=== PATIENT | female | born 1985 | race Native Hawaiian/Other Pacific Islander ===

== ENCOUNTER 2018-07-16 09:03 | Emergency (ER) | payer OTHER ==
[~2018-07-16] VITALS: Ht 152.4 cm; Wt 108.9 kg
[2018-07-16 09:10] VITALS: TEMP 98
[2018-07-16 10:09] LABS: PLATELET COUNT 471 K/uL (152-353)
[2018-07-16 10:15] LABS: POTASSIUM 3.4 mmol/L (3.6-5.2)
[2018-07-16 11:35] VITALS: BP 104/62
== END 2018-07-16 14:22 | disposition short-term general hospital (02) ==
LOC: ED 09:03
PROVIDERS: Family Medicine
PROC: 0T9B70Z Drainage of Bladder with Drainage Device, Via Natural or Artificial Opening (ICD-10-PCS; principal; 2018-07-16)
DX: A41.9 Sepsis, unspecified organism (principal); R56.9 Unspecified convulsions; I95.9 Hypotension, unspecified; R00.0 Tachycardia, unspecified
CPT/HCPCS: 36415; 51702; 74022; 80053; 82150; 82550; 83605; 83690; 84484; 85027; 85379; 87040; 93005; 96361; 96365; 96366; 96375; 96376; 99285; J0153; J1265; J1885; J2060; J2405; J2543; J3370; J3490